=== PATIENT | male | born 1950 ===

== ENCOUNTER 2023-09-13 12:06 | Emergency (ER) | payer MEDICARE, SELFPAY ==
[2023-09-13] VITALS (7 sets, daily range): BP systolic 96–138; BP diastolic 49–93
--- NOTE | 2023-09-13 15:41 | ED.GENMED ---
History of Present Illness
General
Chief Complaint: Fall
Source: patient
Exam Limitations: none
Time Seen by Provider: 09/13/23 12:20
Nursing documentation reviewed up to this point in time: agreed with
Travel History
Have you had any contact with someone who has COVID-19?: No
Do you have any symptoms of coronavirus? Fever > 100 degrees, chills, cough, shortness of breath, sore throat, loss of taste or smell, muscle aches, or headache?: No
History of Present Illness
History of Present Illness:
72-year-old male patient with history of MS, GERD, anxiety depression presenting to the emergency department if he fell out of bed this was witnessed his left side of his head and left wrist. Otherwise appears well according to staff but sent in
for additional imaging. Patient denies additional concerns otherwise. He is able to answer basic questioning.
Past History
Past History
ED Past Medical History: GERD and Other (MS, neuropathy)
ED Past Surgical History: Orthopedic (L knee )
Social History
Tobacco: Non-smoker
Alcohol: None
Personal: Single
Living: with family
Review of Systems
Review of Systems
Allergies reviewed?: Yes
All Other Systems: ROS reviewed and negative except as documented in HPI and ROS
Phy Exam
Physical Exam
Physical Exam:
GENERAL: Alert , in no apparent distress
EYE: pupils equal and reactive
NECK: Supple, no significant adenopathy.
ENT: Superficial abrasion to the left anterior scalp o/p clr, mmm.
CARDIAC: Regular rate and rhythm .
LUNGS: Clear breath sounds bilaterally, no acute respiratory distress, no wheezes/rales/rhonchi
ABDOMEN: Soft, without focal tenderness, no r/g, no cvat
NEUROLOGICAL: Alert and oriented, no focal neuro deficits
SKIN: Warm and dry, skin intact.
MUSCULOSKELETAL: No edema, well perfused.
PSYCH: Normal and appropriate interaction.
Course
Orders/Labs/Results
Orders:
Orders
09/13/23 12:23
CT Cervical Spine W/o Iv Contr Urgent
Comment:
Reason For Exam: fall neck pain
CT Head W/o Iv Contrast Urgent
Comment:
Reason For Exam: fall hit head
CR Elbow - Left Min 3 Views Urgent
Comment:
Reason For Exam: Fall onto left arm
CR Wrist - Left Min 3 Views Urgent
Comment:
Reason For Exam: fall wrist pain
Vital Signs
Initial and Last Documented VS:
Initial Vital Signs
Temp Pulse Resp BP Pulse Ox
97.6 F 82 18 138/93 95
09/13/23 12:09 09/13/23 12:09 09/13/23 12:09 09/13/23 12:09 09/13/23 12:09
Last Documented Vital Signs
Temp Pulse Resp BP Pulse Ox
97.6 F 82 18 138/93 95
09/13/23 12:09 09/13/23 12:09 09/13/23 12:09 09/13/23 12:09 09/13/23 12:09
MDM/Problems Addressed
MDM/Problems Addressed:
72-year-old male presenting to the emergency department today with concerns after a fall at his left head left wrist has a superficial abrasion to the left anterior scalp no additional findings on exam otherwise at baseline mentation. This was a
witnessed fall. Here CT scans without emergent findings x-rays without signs of fracture stable for discharge return precautions given.
*Critical Care Note
Total Time (30-74mins, 75-104mins- exclusive of procedures): Not Applicable
ED Attending Note
-
Portions of this chart may have been created with voice recognition software.� Occasional wrong word or��sound alike� substitutions may have occurred due to the inherent limitations of voice recognition software.
Discharge Plan
Departure
Patient Disposition: Home (Routine Discharge)
Date of Disposition: 09/13/23
Time of Disposition: 15:43
Patient with high blood pressure during this ER visit?: No
Condition: Good
Covid-19: Not Applicable
Discharge Problem:
Fall
Instructions: Preventing falls in adults
Prescriptions:
No Action
allopurinol 100 mg Tablet
100 mg PO DAILY
Hold Instructions: Resume on 04/02/23.
diclofenac sodium 1 % Gel
2 g TOPICAL TID
Patient Comments:
03/21/2023, patient states that they apply this medication to their 'left knee for arthritis pain' TID.
polyethylene glycol 3350 [HealthyLax] 17 gram Powder In Packet
17 g PO DAILY Qty: 0 0RF
miconazole nitrate [Miconazorb AF] 2 % Powder
1 applic topical BID 14 Days Qty: 0 0RF
tamsulosin 0.4 mg Capsule
0.4 mg PO BID Qty: 0 0RF
oxycodone 5 mg Tablet
5 mg PO Q4HPRN PRN (Reason: moderate-severe pain) Qty: 5 0RF
acetaminophen 500 mg capsule
1,000 mg PO TID Qty: 180 0RF
alprazolam [Xanax] 0.5 mg Tablet
0.5 mg PO HS PRN (Reason: sleep) Qty: 2 0RF
Rx Instructions:
03/21/2023, patient filled this medication on 01/03/2023 for 60 tablets according to PDMP.
acetaminophen 325 mg Tablet
650 mg PO Q4HPRN PRN (Reason: mild pain/BURGOS/temp> 100.4F) Qty: 1 0RF
colchicine 0.6 mg capsule
0.6 mg PO DAILY Qty: 3 0RF
Rx Instructions:
for 3 days and resume his allopurinol
Referrals:
Sourav Sterling MD [Family Provider] -
Activity Restrictions/Additional Instructions:
You came to the emergency department today after a fall. Your CT scan did not show emergent findings. Return for any worsening, new or concerning symptoms.
Interventions
Interventions:
*Risk Screen - Suicide Last Done: 09/13/23 12:09
*General Assessment Last Done: 09/13/23 12:09
*Neglect/Abuse Screening Last Done: 09/13/23 12:09
ED-Musculoskeletal Assessment Last Done: 09/13/23 14:35
ED- Neurological Assessment Last Done: 09/13/23 14:35
ED-Skin Assessment Last Done: 09/13/23 14:35
Discharge Date and Time
Print Language: SWEDISH
== END 2023-09-13 20:05 | disposition home or self-care (01) ==
LOC: EMR 12:06
PROVIDERS: EMERGENCY PHYSICIAN Emergency Medicine; FAMILY PHYSICIAN Internal Medicine
DX: Z04.89 Encounter for examination and observation for other specified reasons (principal); W19.XXXA Unspecified fall, initial encounter; G35 Multiple sclerosis; K21.9 Gastro-esophageal reflux disease without esophagitis; F41.8 Other specified anxiety disorders; G62.9 Polyneuropathy, unspecified
CPT/HCPCS: 99284; 70450; 72125; 73080; 73110

== ENCOUNTER 2023-09-20 13:33 | Inpatient (IN) | payer OTHER, SELFPAY ==
[2023-09-20] VITALS (8 sets, daily range): BP systolic 79–104; BP diastolic 44–59
--- NOTE | 2023-09-20 01:13 | ED.GENMED ---
History of Present Illness
<Dedrick Godoy, DO - Last Filed: 09/20/23 02:36>
General
Chief Complaint: Breathing Problem
Source: ambulance crew
Exam Limitations: clinical condition
Time Seen by Provider: 09/20/23 01:07
Travel History
Have you had any contact with someone who has COVID-19?: No
Do you have any symptoms of coronavirus? Fever > 100 degrees, chills, cough, shortness of breath, sore throat, loss of taste or smell, muscle aches, or headache?: No
History of Present Illness
History of Present Illness:
See MDM
Past History
<Dedrick Godoy, DO - Last Filed: 09/20/23 02:36>
Past History
ED Past Medical History: GERD and Other (MS, neuropathy)
ED Past Surgical History: Orthopedic (L knee )
Social History
Tobacco: Non-smoker
Alcohol: None
Personal: Single
Living: with family
Phy Exam
<Dedrick Godoy, DO - Last Filed: 09/20/23 02:36>
Physical Exam
Physical Exam:
See MDM
Scores
<Dedrick Godoy, DO - Last Filed: 09/20/23 02:36>
Heart Failure Risk
Heart Failure Risk Score: Yes
History of Stroke or TIA: No
History of intubation for respiratory distress: No
Heart rate on ED arrival >/= 110: Yes
SaO2 <90% on arrival on room air: Yes
HR >/=110 during 3min walk test (or too ill to perform test): Yes
ECG has acute ischemic changes: No
Urea >/=12mmol/L (BUN 33.6mg/dL): No
Serum CO2>/=35mmol/L: No
Troponin I or T elevated to CA Level (0.4mg/dL): No
NT-proBNP >/=5,000ng/L (5,000pg/ml): No
HF Risk Score: 3
Admission Status: HIGH RISK 15.9% Consider SNF treatment or admission to hospital
<Twyla Garcia, DO - Last Filed: 09/20/23 06:45>
Heart Failure Risk
HF Risk Score: 3
Admission Status: HIGH RISK 15.9% Consider SNF treatment or admission to hospital
Course
<Dedrick Godoy, DO - Last Filed: 09/20/23 02:36>
Orders/Labs/Results
Orders:
Orders
09/20/23 01:18
CR Chest Portable - 1 View Urgent
Comment:
Reason For Exam: SOB
Reason Study Needs to be Portable: Patient Unstable
09/20/23 01:19
Electrocardiogram (*1) Urgent
Reason for Study: Shortness of Breath
EKG- Treatment ONCE
09/20/23 01:22
COVID-19 Antigen Urgent
Source: Nasal Swab
Comprehensive Metabolic Panel Urgent
NT-proBNP Urgent
Troponin I Urgent
09/20/23 02:11
Complete Blood Count/With Diff Urgent
Comment: REDRAW
Manual Differential Urgent
09/20/23 02:34
Case Management Consult ONCE
Case Management Consult: Hospice
Hospice: Evaluation and treat
Furosemide [Lasix] 40 mg IV NOW STA
Abnormal Lab Results
09/20/23 09/20/23
01:22 02:11
WBC 32.5 H 10^3/uL
(4.8-10.8)
RBC 3.50 L 10^6/uL
(4.70-6.10)
Hgb 9.9 L g/dL
(13.0-18.0)
Hct 30.9 L %
(39.0-52.0)
MCHC 32.0 L g/dL
(33.0-37.0)
RDW 15.7 H %
(11.5-14.5)
Abs Neuts (Manual) 28.2 H 10^3/uL
(1.4-6.5)
Band Neutrophils 26 H %
(0-3)
Lymphocytes (Manual) 7 L %
(20-51)
BUN 23 H mg/dl
(9-20)
Glucose 132 H mg/dl
(70-99)
AST 14 L U/L
(17-59)
Albumin 3.0 L g/dl
(3.5-5.0)
09/20/23 02:11
09/20/23 01:22
Vital Signs
Initial and Last Documented VS:
Initial Vital Signs
BP
104/44
09/20/23 01:08
Last Documented Vital Signs
Temp Pulse Resp BP Pulse Ox
98.8 F 110 32 81/50 85
09/20/23 01:11 09/20/23 06:00 09/20/23 06:00 09/20/23 06:00 09/20/23 05:45
<Twyla Garcia, DO - Last Filed: 09/20/23 06:45>
Orders/Labs/Results
Orders:
Orders
09/20/23 01:18
CR Chest Portable - 1 View Urgent
Comment:
Reason For Exam: SOB
Reason Study Needs to be Portable: Patient Unstable
09/20/23 01:19
Electrocardiogram (*1) Urgent
Reason for Study: Shortness of Breath
EKG- Treatment ONCE
09/20/23 01:22
COVID-19 Antigen Urgent
Source: Nasal Swab
Comprehensive Metabolic Panel Urgent
NT-proBNP Urgent
Troponin I Urgent
09/20/23 02:11
Complete Blood Count/With Diff Urgent
Comment: REDRAW
Manual Differential Urgent
09/20/23 02:34
Case Management Consult ONCE
Case Management Consult: Hospice
Hospice: Evaluation and treat
Furosemide [Lasix] 40 mg IV NOW STA
Abnormal Lab Results
09/20/23 09/20/23
01:22 02:11
WBC 32.5 H 10^3/uL
(4.8-10.8)
RBC 3.50 L 10^6/uL
(4.70-6.10)
Hgb 9.9 L g/dL
(13.0-18.0)
Hct 30.9 L %
(39.0-52.0)
MCHC 32.0 L g/dL
(33.0-37.0)
RDW 15.7 H %
(11.5-14.5)
Abs Neuts (Manual) 28.2 H 10^3/uL
(1.4-6.5)
Band Neutrophils 26 H %
(0-3)
Lymphocytes (Manual) 7 L %
(20-51)
BUN 23 H mg/dl
(9-20)
Glucose 132 H mg/dl
(70-99)
AST 14 L U/L
(17-59)
Albumin 3.0 L g/dl
(3.5-5.0)
09/20/23 02:11
09/20/23 01:22
Vital Signs
Initial and Last Documented VS:
Initial Vital Signs
BP
104/44
09/20/23 01:08
Last Documented Vital Signs
Temp Pulse Resp BP Pulse Ox
98.8 F 110 32 81/50 85
09/20/23 01:11 09/20/23 06:00 09/20/23 06:00 09/20/23 06:00 09/20/23 05:45
<Dedrick Godoy, DO - Last Filed: 09/20/23 02:36>
MDM/Problems Addressed
Differential Diagnosis Includes:
HPI and MDM Narrative:
73-year-old male presenting with increased respiratory distress. Patient has a significant history of CHF per EMS. EMS stating that family is planning on putting him on hospice tomorrow. However, patient developed worsening shortness of breath
and fatigue when he received his dose of morphine earlier today. EMS stating that the nursing facility was uncomfortable keeping him there. Family unaware that he was sent to the emergency department.
Physical exam
General: Weak, frail, fatigued. Wakes up to verbal stimuli
HEENT: protecting airway
Neck: appears supple
CV: No evidence of cyanosis
Resp: No accessory muscle use. Crackles throughout
Abd: Non-distended
Extremities: No deformities
Neuro: alert
Psych: Flat affect
Skin: Intact
Problems Addressed including Acute and Chronic Conditions affecting care:
1. Respiratory distress
Acuity: acute
Prognosis: stable
Details: Likely in the setting of his end-stage CHF. Will continue to try and call brother for goals of care
Updates
Multiple attempts made to call brother Lars ([phone])
Chest x-ray consistent with increased pulmonary vascularization. Will give dose of Lasix. Will have case management evaluate in the morning
Differential Diagnosis (but not limited to): CHF, pneumonia
Testing considered:
Drug therapy (if applicable): OTC meds, please see d/c instruction regarding Rx drugs
Amount and/or Complexity of Data Reviewed
Clinical info obtained from: Patient
External data reviewed: N/A
Labs I independently reviewed (but not limited to): Leukocytosis
Radiology: X-ray independently reviewed: Mild pulmonary edema
Pulse Ox: not hypoxic
EKG independently reviewed: sinus tachycardia with PVCs, normal axis, no STEMI
Gastroenterology Manager: Sinus rhythm
Critical Care: N/A
Risk of Complication:
Social Determinants of health: Good social support
Discussed with other providers: N/A
Escalation of Care includes Admit/Obs: Will have case management evaluate for hospice
Occasional wrong word or 'sound a like' substitutions may have occurred due to the inherent limitations of voice recognition software. Read the chart carefully and recognize, using context, where substitutions have occurred.
<Dedrick Godoy, DO - Last Filed: 09/20/23 02:36>
*Critical Care Note
Total Time (30-74mins, 75-104mins- exclusive of procedures): Not Applicable
<Twyla Garcia, DO - Last Filed: 09/20/23 06:45>
Update Note
Update Note:
09/20/2023 0529 AM
Patient remains somnolent, minimally tachypneic, mildly gurgling respirations with pulse ox hovering between 88-92 on nonrebreather mask.
Monitor continues to show mild sinus tachycardia.
Systolic blood pressure in the 80s to 90s.
Overall patient continues to appear comfortable.
We remain unable to get in touch with family, I have tried 2 different numbers for the brother, Lars, both of which go to voicemail.
According to [facility] records patient is DNR status and nursing staff has spoken with correction staff who reiterate that plan was for patient was to initiate hospice today.
09/20/2023 0625 AM
I have spoken with patient's sister, Irina who resides in [place]. Her cell phone number is [phone]. We discussed his current condition and she also verifies that he was supposed to start hospice several days ago. She states there has
been a delay due to ongoing physical therapy but hospice was to start today.
Her ultimate goal is to keep him comfortable.
We did discuss his current condition and that he may pass away this morning, sometime this afternoon. She is aware of his condition and agreeable for patient to return to [facility] with initiation of hospice care.
We have placed a case management consult for this morning to hopefully assist with initiation of hospice at the correction.
Irina states that her brother is a [employer], 'very restoration' thus I have offered to contact a asbestos shingle inspector to administer sacrament of the sick which she appreciates.
She is welcome to visit her brother and she plans to do so this morning.
Discussed that we will notify her if his condition changes, if he should pass away prior to transport back to [facility].
ED Attending Note
<Dedrick Godoy, DO - Last Filed: 09/20/23 02:36>
-
Portions of this chart may have been created with voice recognition software.� Occasional wrong word or��sound alike� substitutions may have occurred due to the inherent limitations of voice recognition software.
Discharge Plan
Departure
Patient Disposition: Alf/SNF
Date of Disposition: 09/20/23
Time of Disposition: 02:35
Discharge Problem:
Acute exacerbation of CHF (congestive heart failure), Admission for hospice care
Prescriptions:
No Action
allopurinol 100 mg Tablet
100 mg PO DAILY
Hold Instructions: Resume on 04/02/23.
acetaminophen 325 mg tablet
650 mg PO Q6HPRN PRN (Reason: mild pain/BURGOS/temp> 100.4F)
clonazepam 0.5 mg Tablet
0.5 mg PO HS PRN (Reason: insomnia)
famotidine 20 mg Tablet
20 mg PO DAILY
morphine 15 mg Tablet
15 mg PO Q4H PRN (Reason: breakthrough pain)
sennosides [senna] 8.6 mg Tablet
See Rx Instructions .ROUTE .COMPLEX PRN (Reason: constipation)
Rx Instructions:
2 tablets by mouth every 24 hrs as needed for constipation
sotalol 80 mg Tablet
80 mg PO BID
miconazole nitrate [Miconazorb AF] 2 % powder
1 applic topical BID PRN (Reason: rash)
Rx Instructions:
apply to groin/buttocks topically every 12 hrs as needed for rash
tamsulosin 0.4 mg capsule
0.4 mg PO BID
magnesium hydroxide [Milk of Magnesia] 400 mg/5 mL Suspension
See Rx Instructions .ROUTE .COMPLEX PRN (Reason: constipation)
Rx Instructions:
give 30ml by mouth every 24 hrs as needed for constipation at bedtime if no BM in 3 days
calcium carbonate 200 mg calcium (500 mg) Tablet,Chewable
See Rx Instructions .ROUTE .COMPLEX PRN (Reason: indigestion)
Rx Instructions:
give 400mg by mouth every 6 hrs as needed for indigestion
Referrals:
Sourav Sterling MD [Family Provider] -
Interventions
Interventions:
*Risk Screen - Suicide Last Done: 09/20/23 01:13
*General Assessment Last Done: 09/20/23 01:17
*Neglect/Abuse Screening Last Done: 09/20/23 01:13
ED- Fall Risk Assessment Last Done: 09/20/23 01:17
*ED COVID-19 Vaccine History Last Done: 09/20/23 01:13
ED- Cardiac Assessment Last Done: 09/20/23 01:18
ED- Pulmonary Assessment Last Done: 09/20/23 01:18
Discharge Date and Time
Print Language: CYMRO
[2023-09-20 02:07] LABS: COVID-19 Antigen Negative (Negative)
[2023-09-20 02:08] LABS: ALT (SGPT) < 10 U/L (0-50); AST (SGOT) 14 U/L (17-59); Alkaline Phosphatase 126 U/L (38-126); Blood Urea Nitrogen 23 mg/dl (9-20); Calcium 9.3 mg/dl (8.4-10.2); Carbon Dioxide 24 mmol/L (22-30); Chloride 104 mmol/L (98-107); Glucose 132 mg/dl (70-99); Potassium 4.8 mmol/L (3.5-5.1); Sodium 140 mmol/L (135-145); Total Bilirubin 1.3 mg/dl (0.2-1.3); Total Protein 6.9 g/dl (6.3-8.2); eGFR > 60.00
[2023-09-20 02:15] LABS: Hematocrit 30.9 % (39.0-52.0); Hemoglobin 9.9 g/dL (13.0-18.0); Mean Corpuscular Hgb 28.3 pg (27.0-31.0); Mean Corpuscular Volume 88.3 fL (80.0-94.0); Mean Platelet Volume 8.2 fL (7.4-10.4); Platelet Count 274 10^3/uL (130-400); Red Cell Dist. Width 15.7 % (11.5-14.5); White Blood Cell Count 32.5 10^3/uL (4.8-10.8)
[2023-09-20 02:19] LABS: Troponin I 0.013 ng/ml
[2023-09-20 02:36] LABS: NT-proBNP 2700 pg/ml
[2023-09-20] MEDS: LASIX 40 MG IV (02:39)
[2023-09-20 04:11] LABS: Absolute Neutrophils -Man Diff 28.2 10^3/uL (1.4-6.5); Band Neutrophils 26 % (0-3); Lymphocytes 7 % (20-51); Monocytes 6 % (2-9); Segmented Neutrophils 61 % (42-75)
[2023-09-20 04:17] LABS: Total Cells Counted 100
[2023-09-20 04:37] LABS: Toxic Granulation 1+
[2023-09-20 04:39] LABS: Anisocytosis Occasional; Basophilic Stippling Occasional; Normal RBC Morphology No; Platelets Checked Yes; Polychromasia Occasional; Schistocytes Occasional
[2023-09-20 04:40] LABS: Target Cells Occasional
--- NOTE | 2023-09-20 08:19 | CHAP ---
request relayed to Fr. Santo, on-call today. He anticipates arriving this morning. I also provided emotional support to Mr. Smith's family at bedside.
--- NOTE | 2023-09-20 08:33 | CM ---
EDMOND reviewed medical records. EDMOND spoke with bedside RN.
EDMOND spoke with Mariah from [facility]. She is going to speak with nursing at [facility] to confirm that patient can return on hospice. EDMOND will await call back from Mariah.
--- NOTE | 2023-09-20 09:06 | CM ---
CM spoke with patient's sister and discussed hospice options. Patient's brother is coming to visit and sister wants to discuss hospice options with brother. CM sent preliminary referral to hospice for clinical review.
--- NOTE | 2023-09-20 10:30 | CHAP ---
Fr. Michele Santo of [facility] in [place] anointed Mr. Smith and gave him Last Rites.
[2023-09-20] MEDS: MORPHINE SULFATE 4 MG IV (10:36)
[2023-09-20] MEDS: ATIVAN 1 MG IV (10:38)
--- NOTE | 2023-09-20 12:08 | HPS.HSE ---
Family Physician
-
Family Physician: Sourav Sterling MD
Chief Complaint
-
Shortness of breath
History of Present Illness
73-year-old male with a past medical history of hypertension, multiple sclerosis with weakness and ambulatory dysfunction presented with increased shortness of breath. Per ER report, patient's family was planning on placing him on hospice tomorrow.
Case was discussed with patient's family (including patient's brother, inside patient's room at the time of this admission) who noted that patient has been declining more and more with infections and weakness in the setting of multiple sclerosis.
Patient's family understand and are in agreement with starting hospice today.
Medical History
Past Medical History
Past Medical History: Reports Other (As per HPI above)
Past Surgical History: Reports Orthopedic
Social History
Tobacco: Former Smoker
Alcohol: None
Drug: None
Family History
Family History: Not pertinent
Allergies / Home Medications
Allergies reflects when Allergies were last updated in [facility].
Home Medications with original date entered in [facility]
Allergy/Medication List:
Allergies
Allergy/AdvReac Type Severity Reaction Status Date / Time
fruit Allergy Hives Uncoded 03/10/23 14:13
Home Medications
allopurinol 100 mg tablet 100 mg PO DAILY Gout 03/10/23
acetaminophen 325 mg tablet 650 mg PO Q6HPRN PRN mild pain/BURGOS/temp> 100.4F 09/20/23
calcium carbonate See Rx Instructions .Route .COMPLEX PRN indigestion 09/20/23
clonazepam 0.5 mg tablet 0.5 mg PO HS PRN insomnia 09/20/23
famotidine 20 mg tablet 20 mg PO DAILY acid reflux 09/20/23
magnesium hydroxide 400 mg/5 mL oral suspension (Milk of Magnesia) See Rx Instructions .Route .COMPLEX PRN constipation 09/20/23
miconazole nitrate 2 % topical powder (Miconazorb AF) 1 applic topical BID PRN rash 09/20/23
morphine 15 mg immediate release tablet 15 mg PO Q4H PRN breakthrough pain 09/20/23
sennosides 8.6 mg tablet (senna) See Rx Instructions .Route .COMPLEX PRN constipation 09/20/23
sotalol 80 mg tablet 80 mg PO BID 09/20/23
tamsulosin 0.4 mg capsule 0.4 mg PO BID BPH 09/20/23
Review of Systems
-
Unable to obtain full review of systems at this time due to: Patient Non-verbal
Physical Exam
Vital Signs
Vital Signs
Temp Pulse Resp BP Pulse Ox
98.8 F 108 32 81/50 85
09/20/23 01:11 09/20/23 08:45 09/20/23 08:45 09/20/23 06:00 09/20/23 05:45
Physical Exam
General: Respiratory Distress
HEENT: NormoCephalic
Respiratory: Clear
Cardiac: S1/S2 and Regular Rhythm
GI: Soft and Non Tender; No Normal Bowel Sounds
Musculoskeletal: No Cyanosis
Skin: Warm and Dry
Psych: Calm
Laboratory Results
-
09/20/23 02:11
09/20/23 01:22
Laboratory Results
Total Bilirubin 1.3 mg/dl (0.2-1.3) 09/20/23 01:22
AST 14 U/L (17-59) L 09/20/23 01:22
ALT < 10 U/L (0-50) 09/20/23 01:22
Alkaline Phosphatase 126 U/L (38-126) 09/20/23 01:22
Troponin I 0.013 ng/ml 09/20/23 01:22
Impression/Plan
-
Assessment/Plan
#Multiple Sclerosis Diagnosed when in the 30s age range
#Past Admission for Ambulatory dysfunction with chronic lower extremity weakness secondary to MS.
#Functional quadriplegia
#History of Complicated Urinary Tract Infection
#History of Urinary Retention
#History of hypertension
#Chills
#Coccyx/buttocks/R lower buttocks stage 2 pressure injuries
#Left heel wound
#History of Right big toe pain with tenderness
-I discussed patient's case with patient's family, including patient's brother Lars and additional family present in patient's room. Patient's functional decline and recurrent infections were discussed. Patient's family expressed understanding of
hospice and what hospice entails. Patient's family is in agreement with starting hospice today.
-Continue Hospice/Comfort Care
--- NOTE | 2023-09-20 12:26 | HOSPNOTE ---
Patient will be signing onto hospice services and remain inpatient. Family in agreement.
--- NOTE | 2023-09-20 14:31 | W.PN.DEATH ---
Pronouncement of
-
Called to see patient to pronounce.
No spontaneous heart tones or respirations noted.
Patient not responsive to verbal stimuli.
Patient is pronounced .
Time of : 14:25
Date of : 09/20/23
Cause of : Cardiac Arrest from Acute Hypoxic Respiratory Failure from Multiple Sclerosis
Family Notified: Yes
--- NOTE | 2023-09-27 10:29 | W.DCSUMMARY ---
Discharge Summary
Discharge Data
Date of Admission: 09/20/23
Date of Discharge: 09/20/23
Total time spent discharging patient (in min): 39
-
Pending Results: No
Hospital Course
73-year-old male with a past medical history of hypertension, multiple sclerosis with weakness and ambulatory dysfunction presented with increased shortness of breath. Per emergency room provider report, patient's family was planning on placing him
on hospice tomorrow. Case was discussed with patient's family (including patient's brother, inside patient's room at the time of this admission) who noted that patient has been declining more and more with infections and weakness in the setting of
multiple sclerosis. Patient's family understood hospice and were in agreement with starting hospice and patient was admitted into hospice. Patient on September 20, 2023.
Discharge Plan
-
Patient Disposition:
Discharge Date and Time
Discharge Date/Time: 09/20/23 14:23
Print Language: TAIWANESE
== END 2023-09-20 14:23 | disposition expired | DRG 951 ==
LOC: ED 13:33
PROVIDERS: ADMITTING PHYSICIAN Hospitalist; EMERGENCY PHYSICIAN Student in an Organized Health Care Education/Training Program; FAMILY PHYSICIAN Internal Medicine
DX: Z51.5 Encounter for palliative care (principal); J96.01 Acute respiratory failure with hypoxia; R53.2 Functional quadriplegia; G35 Multiple sclerosis; G62.9 Polyneuropathy, unspecified; I11.0 Hypertensive heart disease with heart failure; I50.84 End stage heart failure; K21.9 Gastro-esophageal reflux disease without esophagitis; L89.92 Pressure ulcer of unspecified site, stage 2; Z87.891 Personal history of nicotine dependence; Z66 Do not resuscitate
CPT/HCPCS: 71045; 80053; 83880; 84484; 85025; 87811; 93005; 96374; 96375; 99285